=== PATIENT | female | born 1950 | race Caucasian/White ===

== ENCOUNTER → 2016-07-29 | Outpatient (CLI) | payer OTHER ==
--- NOTE | 2016-07-30 08:45 | MM ---
Reason for exam: follow-up at short interval from prior study. Last mammogram was performed 1 year and 4 months ago. History: Patient is postmenopausal. Physical Findings: Nurse did not find any significant physical abnormalities on exam. MG Diagnostic Mammo w CAD CHERIE Bilateral CC and MLO view(s) were taken. Prior study comparison: March 22, 2015, right breast MG 3d work up w/cad RT. March 12, 2015, bilateral MG screening mammo w CAD. January 03, 2014, bilateral MG screening mammo w CAD. February 28, 2008, bilateral digital screening mammogram. There are scattered fibroglandular densities. No significant new findings when compared with previous films. These results were verbally communicated with the patient and result sheet given to the patient on 07/29/16. ASSESSMENT: Benign, BI-RAD 2 RECOMMENDATION: Routine screening mammogram of both breasts in 1 year.
--- NOTE | 2016-07-30 08:45 | USB ---
Reason for exam: follow-up at short interval from prior study. History: Patient is postmenopausal. US Breast RT Right breast ultrasound includes all four quadrants, the retroareolar region and axilla. Finding demonstrates a 0.6 x 0.4 x 0.3cm oval lymph node at 9 o'clock and a 0.4 x 0.3 x 0.2cm oval lymph node at 9 o'clock. These results were verbally communicated with the patient and result sheet given to the patient on 07/29/16. ASSESSMENT: Benign, BI-RAD 2 RECOMMENDATION: Routine screening mammogram of both breasts in 1 year.
== END | disposition home or self-care (01) ==
LOC: RADMAMWWP 13:26
PROVIDERS: ATTEND Family Medicine
DX: R92.8 Other abnormal and inconclusive findings on diagnostic imaging of breast (principal)
CPT/HCPCS: 76641; G0204

== ENCOUNTER → 2017-09-17 | Outpatient (CLI) | payer MEDICARE, OTHER ==
--- NOTE | 2017-09-18 10:31 | MM ---
Reason for exam: screening (asymptomatic). Last mammogram was performed 1 year and 2 months ago. History: Patient is postmenopausal. Physical Findings: A clinical breast exam by your physician is recommended on an annual basis and results should be correlated with mammographic findings. MG Screening Mammo w CAD Bilateral CC and MLO view(s) were taken. Prior study comparison: July 29, 2016, bilateral MG diagnostic mammo w CAD CHERIE. March 22, 2015, right breast MG 3d work up w/cad RT. The breast tissue is heterogeneously dense. This may lower the sensitivity of mammography. There is chronic nodularity in the right breast. No significant changes when compared with prior studies. ASSESSMENT: Benign, BI-RAD 2 RECOMMENDATION: Routine screening mammogram of both breasts in 1 year.
== END | disposition home or self-care (01) ==
LOC: RADMAMWWP 11:14
PROVIDERS: ATTEND Family Medicine
DX: Z12.31 Encounter for screening mammogram for malignant neoplasm of breast (principal)
CPT/HCPCS: 77067

== ENCOUNTER → 2018-10-27 | Outpatient (CLI) | payer MEDICARE, OTHER ==
--- NOTE | 2018-10-27 11:32 | US ---
EXAMINATION TYPE: US abd limited kidneys/bladder DATE OF EXAM: 10/27/2018 COMPARISON: NONE CLINICAL HISTORY: M54.89 Other dorsalgia. EXAM MEASUREMENTS: Liver Length: 13.2 cm Gallbladder Wall: 0.2 cm CBD: 0.3 cm Right Kidney: 10.8 x 3.6 x 4.7 cm Left Kidney: 10.4 x 4.4 x 4.7 cm Pancreas: wnl Liver: 3 hyperechoic masses seen in the liver left lobe mass measures 0.9 x 1.0 x 1.2cm, right lobe 1.)1.5 x 1.0 x 1.4, 2.) 1.6 x 1.1 x 1.6cm Gallbladder: wnl CBD: wnl Right Kidney: wnl Left Kidney: lobular contour laterally Bladder: wnl Bilateral Jets Seen No Normal Post Void Residual (normal less than 50ml) IMPRESSION: 1. Slightly hyperechoic masses within the liver could be hemangioma. Consider dynamic contrast CT of the abdomen for additional evaluation.
== END | disposition home or self-care (01) ==
LOC: RADUSWWP 08:43
PROVIDERS: ATTEND Family Medicine
DX: R16.0 Hepatomegaly, not elsewhere classified (principal); M54.9 Dorsalgia, unspecified
CPT/HCPCS: 76705; 76770

== ENCOUNTER → 2018-11-01 | Outpatient (CLI) | payer MEDICARE, OTHER ==
[2018-11-01 18:51] LABS: African American GFR (CKD) 49.5 (60.0-200.0)
== END | disposition home or self-care (01) ==
LOC: LABWHC1 10:54
PROVIDERS: ATTEND Nurse Practitioner
DX: K76.89 Other specified diseases of liver (principal)
CPT/HCPCS: 36415; 82565; 84520

== ENCOUNTER → 2018-11-06 | Outpatient (CLI) | payer MEDICARE, OTHER ==
--- NOTE | 2018-11-07 08:09 | CT ---
EXAMINATION TYPE: CT abdomen w con DATE OF EXAM: 11/06/2018 HISTORY: Lt flank pain, abn US CT DLP: 794.5mGycm Automated Exposure Control for Dose Reduction was Utilized. CONTRAST: CT scan of the abdomen is performed with IV Contrast, patient injected with 100 mL of Isovue 300. COMPARISON: None. FINDINGS: LUNG BASES: No significant abnormality is appreciated. LIVER/GB: No focal hepatic mass is seen however there is diffuse attenuation of the hepatic parenchym a, relating to hepatic steatosis that does limit evaluation for hepatic masses. No intrapelvic biliar y ductal dilatation or cholelithiasis. PANCREAS: No significant abnormality is seen. SPLEEN: No significant abnormality is seen. ADRENALS: No significant abnormality is seen. KIDNEYS: Too small to accurately characterize bilateral renal lesions are seen with some internal com plexity of the cortically based right midpole renal lesion on series 3 image 32. BOWEL: Descending duodenal diverticulum is noted. LYMPH NODES: No greater than 1cm abdominal nodes are appreciated. OSSEOUS STRUCTURES: Mild multilevel degenerative disc disease of the spine. OTHER: There is an elongated ovoid multiloculated left lower quadrant subcutaneous cystic lesion radha uring approximately 6.3 cm in transverse dimension and 2.2 cm in anterior posterior dimension with ne w internal complexity as there is a calcification and high density at its cranial aspect on image 60 of series 3. Probable partially visualized intramuscular lipoma of the right gluteal musculature. Moderate atherom atous change of the abdominal aorta and its branches. IMPRESSION: 1. There is no clear correlate for the hyperechoic masses seen on the prior ultrasound of 10/27/2018. However there is diffuse hypoattenuation of the hepatic parenchyma relating to hepatic steatosis (ove rall mild in degree). This finding does limit evaluation for hepatic masses. When compared with the p rockfordr ultrasound the sonographic findings likely represent focal fatty sparing or hemangiomas in a pat ient with no known underlying hepatocellular disease and no CT evidence of hepatocellular disease. Ho wever, these could be more accurately assessed with MRI liver mass protocol. 2. Bilateral renal lesions that are subcentimeter and too small to accurately characterize although t here is some complexity of the right renal lesion and six-month follow-up CT would be recommended. 3. Partially visualized lobulated fluid attenuating lesion in the anterior abdomen with an associated calcification. This has increased in size from the prior 2010. Given its presence from 2010 this may be related to a benign etiology and correlation with surgical intervention at this site is recommend ed. Given its new internal complexity if there is any further clinical concern ultrasound guided baldev andersen could be considered.
== END | disposition home or self-care (01) ==
LOC: RADCTMAIN 09:21
PROVIDERS: ATTEND Family Medicine
DX: K76.0 Fatty (change of) liver, not elsewhere classified (principal); R16.0 Hepatomegaly, not elsewhere classified; N28.9 Disorder of kidney and ureter, unspecified
CPT/HCPCS: 74160; Q9967

== ENCOUNTER → 2018-11-30 | Outpatient (CLI) | payer MEDICARE, OTHER ==
--- NOTE | 2018-12-01 08:37 | MR ---
EXAMINATION TYPE: MR liver wo/w con DATE OF EXAM: 11/30/2018 COMPARISON: CT abdomen November 06, 2018. Limited abdominal ultrasound October 27, 2018 HISTORY: Liver mass CONTRAST: Standard multiplanar, multisequence MRI departmental protocol utilizing 7.5 mL intravenous Gadavist g adolinium contrast. Imaging is performed of the abdomen focusing in the liver. FINDINGS: Liver: Liver redemonstrates prominent right hepatic lobe. Mild diffuse signal dropout consistent wit h mild diffuse fatty infiltration is present. No worrisome solid or cystic intrahepatic masses are id entified on dynamic MRI images. No surrounding ascites. Patent portal vein. Patent hepatic veins drai felecia into IVC. Areas of concern on ultrasound favor more prominent focal fatty infiltration as more c entral near vicky hepatis and gallbladder fossa. Other: Lung bases are grossly clear. Gallbladder, spleen, and both adrenal glands are normal in size. There is a 3 mm thin-walled cyst or cystic lesion in the pancreas or level of uncinate processes axi al image 27 presumed benign given size. Subcentimeter rounded T2 hyperintense lesions scattered throu ghout both kidneys are too small to further characterize for presumed benign. No hydronephrosis. No s uspicious bowel dilatation. No abdominal ascites. Visualized osseous structures show hemangioma invol ving the left T8 vertebra image 29 IMPRESSION: No worrisome intrahepatic mass identified on MRI.
== END | disposition home or self-care (01) ==
LOC: RADMRIMAIN 08:45
PROVIDERS: ATTEND Internal Medicine
DX: K76.89 Other specified diseases of liver (principal)
CPT/HCPCS: 74183; A9585

== ENCOUNTER 2018-12-09 08:17 | Day surgery (SDC) | payer MEDICARE, OTHER ==
[~2018-12-09 08:17] MED LIST: DEXAMETHASONE SOD PHOSPHATE 10 MG/ML 1 ML VIAL IV ONE; HEPARIN SODIUM,PORCINE 5,000 UNIT/ML 1 ML VIAL SQ ONE; HYDROmorphone 0.5 MG/0.5 ML SYRINGE IVP PRN; LIDOCAINE 1% 20 ML VIAL (10MG/ML) FOR IV START INTRADERMA PRN; Pre Op ABX Message 1 EACH MISC MISCELLANE ONE; SCOPOLAMINE 1.5MG/72HR PATCH TRANSDERM ONE
[2018-12-09 08:53] LABS: Glucose,Whole Blood 142 mg/dL (75-99)
[2018-12-09] MEDS ORDERED: LACTATED RINGERS 1,000 ML IV ONE ×2 (08:55→10:53)
[2018-12-09] MEDS: ONDANSETRON 4 MG/2 ML VIAL IVP ONE ×2 (08:55→12:59)
--- NOTE | 2018-12-09 10:14 | P.GSHP ---
History of Present Illness H&P Date: 12/09/18 Chief Complaint: Left lower quadrant mass This is a 68-year-old female who presents today for excision of a left lower quadrant mass. Patient developed a 10 cm mass in the subcutaneous tissue of the left lower quadrant. The mass is firm and tender. Past Medical History Past Medical History: Diabetes Mellitus, GERD/Reflux, Hyperlipidemia, Hypertension, Thyroid Disorder Additional Past Medical History / Comment(s): DIVERTICULITIS, GOUT-RIGHT GREAT TOE SORE., PT STATES DR "KILLED MY THYROID"., GLAUCOMA, VERTIGO., ABDOMINAL MASS. History of Any Multi-Drug Resistant Organisms: MRSA Date of last positivie culture/infection: 2005 MDRO Source:: LEG Additional Past Surgical History / Comment(s): RT OVARY REMOVED, STATES PYLORIC VALVE SURGERY AN , TUMOR ON FINGER. Past Anesthesia/Blood Transfusion Reactions: No Reported Reaction, Motion Sickness Past Psychological History: No Psychological Hx Reported Smoking Status: Former smoker Past Alcohol Use History: Rare Additional Past Alcohol Use History / Comment(s): QUIT SMOKING 2009 STARTED SMOKING AT AGE 27, SMOKED LESS THAN PPD Past Drug Use History: None Reported - Past Family History Daughter(s) Additional Family Medical History / Comment(s): LUPUS Medications and Allergies Home Medications Medication Instructions Recorded Confirmed Type Gemfibrozil [Lopid] 600 mg PO BID 11/17/13 12/09/18 History Simvastatin [Zocor] 20 mg PO HS 11/17/13 12/09/18 History metFORMIN HCL 1,000 mg PO BID 11/17/13 12/09/18 History Calcium Carb/Magnesium Hydrox 1 each PO DAILY PRN 12/07/18 12/09/18 History [Rolaids Chewable Tablet] Cetirizine HCl 10 mg PO DAILY 12/07/18 12/09/18 History Arguello Tablets 1 tab PO DIRECTED PRN 12/07/18 12/09/18 History Cholecalciferol [Vitamin D3 (25 1,000 unit PO DAILY 12/07/18 12/07/18 History Mcg = 1000 Iu)] Diltiazem HCl [Diltiazem ER] 360 mg PO DAILY 12/07/18 12/07/18 History Fiber Supplement 1 dose PO DAILY 12/07/18 12/09/18 History Hydrochlorothiazide [Hydrodiuril] 25 mg PO DAILY 12/07/18 12/09/18 History Indomethacin [Indocin] 50 mg PO DAILY PRN 12/07/18 12/07/18 History Latanoprost/Pf [Latanoprost 0.005% 1 drop BOTH EYES HS 12/07/18 12/09/18 History Eye Drop] Levothyroxine Sodium [Synthroid] 88 mcg PO DAILY 12/07/18 12/07/18 History Lisinopril [Zestril] 20 mg PO BID 12/07/18 12/07/18 History Multivit-Min/FA/Lycopen/Lutein 1 each PO DAILY 12/07/18 12/07/18 History [Centrum Silver Tablet] glipiZIDE XL [Glucotrol Xl] 10 mg PO DAILY 12/07/18 12/09/18 History Allergies Allergy/AdvReac Type Severity Reaction Status Date / Time codeine Allergy Unknown Nausea & Verified 12/07/18 09:54 Vomiting tramadol Allergy Unknown Nausea & Verified 12/07/18 09:54 Vomiting Surgical - Exam Vital Signs Temp Pulse Resp BP Pulse Ox 97.8 F 73 18 151/67 96 12/09/18 08:35 12/09/18 08:35 12/09/18 08:35 12/09/18 08:35 12/09/18 08:35 - General well developed, well nourished, no distress - Eyes PERRL - ENT normal pinna - Neck no masses - Respiratory normal expansion - Cardiovascular Rhythm: regular - Abdomen Abdomen: soft, non tender - Integumentary 10 cm mass in the left lower quadrant subcutaneous tissue. Results - Labs Abnormal Lab Results - Last 24 Hours (Table) 12/09/18 Range/Units 08:51 POC Glucose (mg/dL) 142 H (75-99) mg/dL Assessment and Plan Assessment: Left lower quadrant subcutaneous mass. Patient will go undergo excision.
[2018-12-09] MEDS ORDERED: GLYCOPYRROLATE 0.2 MG/ML 2 ML VIAL ONE (10:29)
[2018-12-09] MEDS ORDERED: fentaNYL (PF) 50 MCG/ML 2 ML AMP ONE (10:29)
[2018-12-09] MEDS ORDERED: SUCCINYLCHOLINE CHLORIDE 100 MG/5 ML SYR IV ONE (10:29)
[2018-12-09] MEDS ORDERED: NEOSTIGMINE 1 MG/ML 10 ML VIAL ONE (10:29)
[2018-12-09] MEDS ORDERED: ROCURONIUM BROMIDE 10 MG/ML 10 ML VIAL IV ONE (10:29)
[2018-12-09] MEDS ORDERED: PROPOFOL 10 MG/ML 20 ML VIAL IV ONE (10:29)
[2018-12-09] MEDS ORDERED: MIDAZOLAM 2 MG/2 ML VIAL ONE (10:29)
[2018-12-09] MEDS ORDERED: LIDOCAINE 1% INJ 10MG/ML (20 ML MDV) ONE (10:29)
[2018-12-09] MEDS ORDERED: SODIUM CHLORIDE 0.9% 50 ML with ceFAZolin 2,000 MG IV ONE ×2 (10:37)
[2018-12-09] MEDS ORDERED: BUPIVACAINE (PF) 0.25% 30 ML VIAL SQ ONE (10:41)
--- NOTE | 2018-12-09 11:02 | P.OP ---
Date of Procedure: 12/09/18 Preoperative Diagnosis: Left lower quadrant mass Postoperative Diagnosis: Incarcerated ventral hernia Procedure(s) Performed: Open repair of incarcerated ventral hernia Anesthesia: PAO Surgeon: Carlo Valdez Pathology: other (Hernia sac/omentum) Condition: stable Disposition: PACU Description of Procedure: The patient's placed on the operating table in the supine position. She received general anesthesia. Her abdomen was prepped and draped usual sterile fashion. The patient a mass in the left lower quadrant. The skin over the mass was then incised with 15 blade. Using the cautery the subcutaneous tissues were divided. The mass was exposed. The mass appeared to be a incarcerated ventral hernia. Hernia sac was transected the incarcerated omentum was transected and sent to pathology. The fascial defect was then closed with. 0 Ethibond suture. Skin was closed with bernard. Patient top she will was sent to recovery room in stable condition.
[2018-12-09] MEDS ORDERED: INSULIN ASPART (NovoLOG) 100 UNIT/ML VIAL SQ ONE ×2 (13:11→14:45)
[2018-12-09 13:20] LABS: Glucose,Whole Blood 286 mg/dL (75-99)
[2018-12-09] MEDS ORDERED: PROMETHAZINE INJ 25 MG/ML 1 ML VIAL IVPB ONE (14:06)
[2018-12-09 14:11] LABS: Glucose,Whole Blood 265 mg/dL (75-99)
[2018-12-09 15:10] LABS: Glucose,Whole Blood 237 mg/dL (75-99)
[2018-12-09] MEDS ORDERED: DILTIAZEM DRIP BOLUS FROM BAG 1 MG SOLN IV ONE (18:00)
[2018-12-09 18:35] LABS: Glucose,Whole Blood 149 mg/dL (75-99)
[2018-12-09] MEDS: LACTATED RINGERS 1,000 ML IV SCH (19:03)
[2018-12-09] MEDS: SODIUM CHLORIDE 0.9% 1,000 ML IV SCH (19:08)
[2018-12-09] MEDS: DILTIAZEM 125 MG in SODIUM CHLORIDE 0.9% 100 ML IV SCH (19:09)
[2018-12-09 20:01] VITALS: BMI 31.0
--- NOTE | 2018-12-09 20:05 | CONS ---
CONSULTATION DATE OF SERVICE: 12/09/2018 Mrs. Lore Lugo is a 68-year-old lady who sees Dr. Garduno in the outpatient setting and Dr. Clancy from a cardiology standpoint. She has history of type 2 diabetes, hypertension and hypercholesterolemia. She has no history of any ID or CVA. She was brought in for elective repair of incarcerated ventral hernia. This procedure was performed by Dr. Valdez. Following the procedure while she was in recovery she went into atrial fibrillation with a rate of about 120 to 130, and I was asked to see her around 5 p.m. today. Upon arrival, patient is comfortable resting. She is aware of the palpitations but has no chest pain. She has never had any atrial fibrillation before; this seems to be the first episode. She does not recall any similar palpitations in the recent or remote past. She saw Dr. Clancy within the last few months and also had a stress test about 14 to 15 months ago which was normal per patient. PAST MEDICAL HISTORY: 1. Type 2 diabetes, on oral agents. 2. Hyperlipidemia. 3. Hypertension. 4. Hypothyroidism. 5. No evidence of any prior myocardial infarction or CVA. MEDICATIONS: Medications at home include: 1. Metformin 1000 mg b.i.d. 2. Glucotrol XL 10 mg daily. 3. Simvastatin 20 mg daily. 4. Hydrochlorothiazide 25 mg daily. 5. Lopid 600 mg b.i.d. 6. Diltiazem XR 360 mg daily. 7. Synthroid 88 mcg daily. 8. Indocin. 9. Zestril. 10.Hydrocodone. ALLERGIES: CODEINE and TRAMADOL. PHYSICAL EXAMINATION: Blood pressure is 128/70. Pulse rate is about 124 per minute, irregular. HEENT unremarkable. Fundus was not examined by me. Neck is supple. There is no JVD. I do not hear a carotid bruit. Heart exam reveals S1, S2 with rhythm. No significant murmurs. Tachycardia noted. Lungs reveal decent air entry. Abdomen exam deferred. Central nervous system grossly within normal limits. Lower extremities reveal diminished pulses. EKG reveals atrial fibrillation, moderate ventricular rate, nonspecific ST-T changes. IMPRESSION: 1. New-onset atrial fibrillation. 2. Hypertension. 3. Hyperlipidemia. 4. Type 2 diabetes mellitus. 5. Hypothyroidism. 6. Status post repair of ventral hernia by Dr. Valdez. RECOMMENDATIONS: I am recommending hospitalization, intravenous Cardizem, 0.9 saline 75 mL/hour, resumption of oral medications that she takes at home. Patient's anticoagulation can wait until tomorrow since she had surgery today. I explained to the patient that she will require long-term anticoagulation, given the fact she has diabetes, hypertension and is 68 years of age. Patient understands and will follow through. I am recommending that the patient be hospitalized by the hospitalist, and I gave the nurse the above-outlined orders. Hopefully she will convert to sinus rhythm by tomorrow. Thank you very much for the consult. ESTELLA / JUANAN: [id number] /
[2018-12-09 20:53] LABS: Glucose,Whole Blood 251 mg/dL (75-99)
[2018-12-09] MEDS ORDERED: LATANOPROST 0.005% OPHTH DROPS 2.5 ML BTL BOTH EYES SCH (21:00)
[2018-12-09] MEDS ORDERED: ATORVASTATIN 10 MG TAB PO SCH (21:00)
[2018-12-09] MEDS: LISINOPRIL 20 MG TAB PO SCH (21:07)
[2018-12-09] MEDS: INSULIN ASPART (NovoLOG) 100 UNIT/ML VIAL SQ SCH (21:08)
[2018-12-10] MEDS ORDERED: ACETAMINOPHEN TAB 325 MG TAB PO PRN (03:02)
[2018-12-10 03:15] VITALS: RESP 18
[2018-12-10] MEDS: LACTATED RINGERS 1,000 ML IV SCH (05:01)
[2018-12-10] MEDS: SODIUM CHLORIDE 0.9% 1,000 ML IV SCH (06:13)
[2018-12-10 06:18] LABS: Glucose,Whole Blood 175 mg/dL (75-99)
[2018-12-10] MEDS ORDERED: LEVOTHYROXINE 88 MCG TAB PO SCH (06:30)
[2018-12-10] MEDS: INSULIN ASPART (NovoLOG) 100 UNIT/ML VIAL SQ SCH ×2 (06:35→12:02)
[2018-12-10 06:52] LABS: Basophils % (A) 0 %; Eosinophils % (A) 0 %; HCT 35.4 % (34.0-46.0); HGB 11.5 gm/dL (11.4-16.0); Lymphocytes # (A) 1.3 k/uL (1.0-4.8); Lymphocytes % (A) 9 %; MCH 28.2 pg (25.0-35.0); MCHC 32.4 g/dL (31.0-37.0); MCV 87.2 fL (80.0-100.0); Mean Platelet Volume 6.8; Monocytes # (A) 0.5 k/uL (0-1.0); Monocytes % (A) 4 %; Neutrophils # (A) 12.6 k/uL (1.3-7.7); Neutrophils % (A) 86 %; Platelet Count 335 k/uL (150-450); RBC 4.07 m/uL (3.80-5.40); RDW 13.7 % (11.5-15.5); WBC 14.6 k/uL (3.8-10.6)
[2018-12-10 07:12] LABS: Albumin 3.8 g/dL (3.5-5.0); Calcium 9.7 mg/dL (8.4-10.2); Potassium 4.4 mmol/L (3.5-5.1); Total Bilirubin 0.4 mg/dL (0.2-1.3); Total Protein 6.4 g/dL (6.3-8.2)
[2018-12-10] MEDS: LISINOPRIL 20 MG TAB PO SCH (07:57)
--- NOTE | 2018-12-10 08:38 | P.PN ---
Progress Note - Text Progress Note Date: 12/10/18 The patient is resting comfortably in her bed. Appears that her atrial flutter rate has been controlled. She has minimal abdominal pain. On exam her vital signs are stable. Her abdomen soft. Patiently discharged home today she'll follow up with cardiology and myself as an outpatient.
[2018-12-10] MEDS ORDERED: LORATADINE 10 MG TAB PO SCH (09:00)
[2018-12-10] MEDS ORDERED: FENOFIBRATE 160 MG TAB PO SCH (09:00)
[2018-12-10] MEDS ORDERED: HYDROCHLOROTHIAZIDE 25 MG TAB PO SCH (09:00)
[2018-12-10] MEDS ORDERED: INDOMETHACIN 25 MG CAP PO PRN (10:14)
[2018-12-10] MEDS ORDERED: NON FORMULARY DRUG (Metformin Hcl [Metformin Hcl] 1,000 MG) PO SCH (10:15)
[2018-12-10] MEDS ORDERED: glipiZIDE 5 MG TAB PO SCH (10:15)
[2018-12-10] MEDS ORDERED: DILTIAZEM CD 180 MG CAP.ER.24H PO SCH (10:15)
[2018-12-10] MEDS: DILTIAZEM 125 MG in SODIUM CHLORIDE 0.9% 100 ML IV SCH (10:51)
[2018-12-10 11:38] LABS: Glucose,Whole Blood 220 mg/dL (75-99)
[2018-12-10 11:53] VITALS: BP 129/71; PULSE 68; TEMP 97.9
--- NOTE | 2018-12-10 11:57 | P.CONS ---
History of Present Illness - Reason for Consult Consult date: 12/10/18 Medical management Requesting physician: Carlo Valdez - Chief Complaint Status post ventral hernia repair - History of Present Illness This is a 68-year-old female, patient of Dr. Garduno. She has a known past medical history of diabetes, hyperlipidemia, hypertension and hypothyroidism. Patient came into the hospital for an incarcerated ventral hernia and underwent open repair of the incarcerated ventral hernia with Dr. Valdez. She tolerated surgery well. However, following the procedure she was in recovery and went into atrial fibrillation with a heart rate around 120 to 130s. Cardiology was consulted and patient was started on a Cardizem drip. Patient has converted to normal sinus rhythm. And cardiology is recommending Eliquis to be started on Thursday due to her recent surgery. Thyroid level is normal. Patient denies any chest pain, heart palpitations, shortness of breath or nausea or vomiting. She has never had atrial fibrillation before. She did have a small bowel movement today. Denies any burning with urination. She is anticipating being discharged this afternoon. We have been consulted for medical management. Review of Systems Please refer to HPI otherwise unremarkable Past Medical History Past Medical History: Diabetes Mellitus, GERD/Reflux, Hyperlipidemia, Hy pertension, Thyroid Disorder Additional Past Medical History / Comment(s): DIVERTICULITIS, GOUT-RIGHT GREAT TOE SORE., PT STATES DR "KILLED MY THYROID"., GLAUCOMA, VERTIGO., ABDOMINAL MASS. History of Any Multi-Drug Resistant Organisms: MRSA Year Discovered:: 2005 MDRO Source:: LEG Additional Past Surgical History / Comment(s): RT OVARY REMOVED, STATES PYLORIC VALVE SURGERY AN INFANT, TUMOR ON FINGER. Past Anesthesia/Blood Transfusion Reactions: Motion Sickness Past Psychological History: No Psychological Hx Reported Smoking Status: Former smoker Past Alcohol Use History: Rare Additional Past Alcohol Use History / Comment(s): QUIT SMOKING 2009 STARTED SMOKING AT AGE 27, SMOKED LESS THAN PPD Past Drug Use History: None Reported - Past Family History Daughter(s) Additional Family Medical History / Comment(s): LUPUS Medications and Allergies Home Medications Medication Instructions Recorded Confirmed Type Gemfibrozil [Lopid] 600 mg PO BID 11/17/13 12/09/18 History Simvastatin [Zocor] 20 mg PO HS 11/17/13 12/09/18 History metFORMIN HCL 1,000 mg PO BID 11/17/13 12/09/18 History Calcium Carb/Magnesium Hydrox 1 each PO DAILY PRN 12/07/18 12/09/18 History [Rolaids Chewable Tablet] Cetirizine HCl 10 mg PO DAILY 12/07/18 12/09/18 History Arguello Tablets 1 tab PO DIRECTED PRN 12/07/18 12/09/18 History Cholecalciferol [Vitamin D3 (25 1,000 unit PO DAILY 12/07/18 12/07/18 History Mcg = 1000 Iu)] Diltiazem HCl [Diltiazem ER] 360 mg PO DAILY 12/07/18 12/07/18 History Fiber Supplement 1 dose PO DAILY 12/07/18 12/09/18 History Hydrochlorothiazide [Hydrodiuril] 25 mg PO DAILY 12/07/18 12/09/18 History Indomethacin [Indocin] 50 mg PO DAILY PRN 12/07/18 12/07/18 History Latanoprost/Pf [Latanoprost 0.005% 1 drop BOTH EYES HS 12/07/18 12/09/18 History Eye Drop] Levothyroxine Sodium [Synthroid] 88 mcg PO DAILY 12/07/18 12/07/18 History Lisinopril [Zestril] 20 mg PO BID 12/07/18 12/07/18 History Multivit-Min/FA/Lycopen/Lutein 1 each PO DAILY 12/07/18 12/07/18 History [Centrum Silver Tablet] glipiZIDE XL [Glucotrol Xl] 10 mg PO DAILY 12/07/18 12/09/18 History Docusate [Colace] 100 mg PO BID #20 capsule 12/09/18 Rx HYDROcodone/APAP 5-325MG [Isle 1 tab PO Q6HR PRN #10 tab 12/09/18 Rx 5-325] Apixaban [Eliquis] 5 mg PO BID #60 tab 12/10/18 Rx Allergies Allergy/AdvReac Type Severity Reaction Status Date / Time codeine Allergy Unknown Nausea & Verified 12/07/18 09:54 Vomiting tramadol Allergy Unknown Nausea & Verified 12/07/18 09:54 Vomiting Physical Exam Vitals: Vital Signs Temp Pulse Pulse Pulse Resp BP BP 12/10/18 08:06 78 12/10/18 08:00 97.8 F 78 18 119/71 12/10/18 03:00 98.2 F 79 18 121/59 12/09/18 23:00 98.2 F 94 16 141/71 12/09/18 19:00 98.4 F 126 H 16 124/74 12/09/18 18:45 124 H 16 140/72 12/09/18 17:53 100 16 133/90 12/09/18 17:39 68 16 117/88 12/09/18 16:27 121 H 18 129/74 12/09/18 16:00 121 H 18 129/74 12/09/18 15:25 120 H 18 133/88 12/09/18 15:11 114 H 18 119/80 12/09/18 14:40 124 H 18 120/82 12/09/18 14:25 122 H 18 116/78 12/09/18 14:10 123 H 18 123/83 12/09/18 13:51 119 H 16 138/83 12/09/18 13:35 121 H 16 117/76 12/09/18 13:19 120 H 15 132/78 12/09/18 13:00 120 H 16 122/58 12/09/18 12:45 122 H 16 128/59 12/09/18 12:30 119 H 16 134/69 12/09/18 12:15 120 H 18 119/54 12/09/18 12:00 63 16 124/60 Pulse Ox 12/10/18 08:06 12/10/18 08:00 95 12/10/18 03:00 96 12/09/18 23:00 96 12/09/18 19:00 96 12/09/18 18:45 96 12/09/18 17:53 98 12/09/18 17:39 98 12/09/18 16:27 100 12/09/18 16:00 100 12/09/18 15:25 96 12/09/18 15:11 96 12/09/18 14:40 99 12/09/18 14:25 100 12/09/18 14:10 95 12/09/18 13:51 95 12/09/18 13:35 94 L 12/09/18 13:19 94 L 12/09/18 13:00 96 12/09/18 12:45 94 L 12/09/18 12:30 93 L 12/09/18 12:15 98 12/09/18 12:00 93 L Intake and Output 12/09/18 12/10/18 12/10/18 22:59 06:59 14:59 Intake Total 200 180 Output Total 2 Balance 200 178 Intake: IV 200 Oral 180 Output: Urine 2 Other: Voiding Method Toilet Toilet Weight 75.7 kg Head normocephalic Neck supple Lungs clear to auscultation bilaterally no wheezing or crackles Heart regular rate and rhythm S1-S2, no rub or gallop Abdomen is soft nontender nondistended positive bowel sounds no hepatosplenomegaly Extremities no edema Neuro alert and orientated to 3 Results CBC & Chem 7: 12/10/18 06:07 12/10/18 06:07 Labs: Abnormal Lab Results - Last 24 Hours (Table) 12/09/18 12/09/18 12/09/18 Range/Units 12:55 14:08 15:07 WBC (3.8-10.6) k/uL Neutrophils # (1.3-7.7) k/uL BUN (7-17) mg/dL Creatinine (0.52-1.04) mg/dL Glucose (74-99) mg/dL POC Glucose (mg/dL) 286 H 265 H 237 H (75-99) mg/dL 12/09/18 12/09/18 12/10/18 Range/Units 18:32 20:52 06:07 WBC 14.6 H (3.8-10.6) k/uL Neutrophils # 12.6 H (1.3-7.7) k/uL BUN (7-17) mg/dL Creatinine (0.52-1.04) mg/dL Glucose (74-99) mg/dL POC Glucose (mg/dL) 149 H 251 H (75-99) mg/dL 12/10/18 12/10/18 12/10/18 Range/Units 06:07 06:17 11:37 WBC (3.8-10.6) k/uL Neutrophils # (1.3-7.7) k/uL BUN 26 H (7-17) mg/dL Creatinine 1.06 H (0.52-1.04) mg/dL Glucose 165 H (74-99) mg/dL POC Glucose (mg/dL) 175 H 220 H (75-99) mg/dL Assessment and Plan Assessment: 1. Incarcerated ventral hernia status post open repair with Dr. King 2. New onset paroxysmal atrial fibrillation that occurred postoperatively. Patient currently in normal sinus rhythm after being placed on IV Cardizem drip. Seen by cardiology. Cardizem drip has been discontinued. Patient restarted on her home medication of Cardizem. Thyroid level checked and is normal. 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 Essential hypertension: Blood pressure stable Q current medications. 4. Leukocytosis likely related to the dexamethasone given in the OR. No evidence of infection 5. Hyperglycemia secondary to the dexamethasone continue with sliding scale coverage. Resume patient's glipizide. Hold metformin while she is in the hospital 6. Mild dehydration with BUN 26 and creatinine 1.06. Likely related to patient being nothing by mouth. Encourage fluid intake. 7. Hypothyroidism continue with her Synthroid Thank you for this consultation. We'll follow along the patient's hospitalization. Most likely she'll be discharged this afternoon and recommend that patient has CBC and BMP checked in 1 week when she follows up with her PCP. Time with Patient: Greater than 30 (Greater than 50% of the total time spent in counseling and coordination of care.I performed an examination of the patient and discussed their management with the physician Employment Specialist. I have reviewed the Physician Employment Specialist's notes and agree with the documented findings and plan of care)
--- NOTE | 2018-12-10 22:35 | PN ---
PROGRESS NOTE Lore is in sinus rhythm, she converted last night. She had paroxysmal atrial fibrillation after her surgery. Her vitals are stable, doing well. S1-S2 heard normally. Lungs are clear. Abdomen and lower extremity exam unchanged. She underwent a ventral hernia repair, had postoperatively developed atrial fib, now back in sinus rhythm. I am recommending that we start anticoagulation Eliquis after 48 hours as suggested by Dr. Valdez and she will see Dr. lCancy in one week. Same home medications. MMODL / IJN: [id number] /
== END 2018-12-10 13:36 | disposition home or self-care (01) ==
LOC: OR 08:17 → 3SCARD 11:17 → OR 12-10 13:36
PROVIDERS: ATTEND Surgery
DX: K43.6 Other and unspecified ventral hernia with obstruction, without gangrene (principal); I48.0 Paroxysmal atrial fibrillation; I10 Essential (primary) hypertension; E78.5 Hyperlipidemia, unspecified; K21.9 Gastro-esophageal reflux disease without esophagitis; E03.9 Hypothyroidism, unspecified; E78.00 Pure hypercholesterolemia, unspecified; E11.39 Type 2 diabetes mellitus with other diabetic ophthalmic complication; H42 Glaucoma in diseases classified elsewhere; E66.9 Obesity, unspecified; E11.65 Type 2 diabetes mellitus with hyperglycemia; D72.829 Elevated white blood cell count, unspecified; M10.9 Gout, unspecified; E86.0 Dehydration; Z87.891 Personal history of nicotine dependence; Z88.5 Allergy status to narcotic agent; Z88.6 Allergy status to analgesic agent; Z68.31 Body mass index [BMI] 31.0-31.9, adult; Z79.84 Long term (current) use of oral hypoglycemic drugs; Z79.899 Other long term (current) drug therapy; Z87.19 Personal history of other diseases of the digestive system; Z98.890 Other specified postprocedural states; Z79.890 Hormone replacement therapy; Z86.14 Personal history of Methicillin resistant Staphylococcus aureus infection; Z90.721 Acquired absence of ovaries, unilateral; Z83.2 Family history of diseases of the blood and blood-forming organs and certain disorders involving the immune mechanism; Z79.01 Long term (current) use of anticoagulants
CPT/HCPCS: 93005; 88305; 80053; 84443; 85025; 83036; 49561; J2250; J1644; J1100; J2550; J2710; J2405; J0690; J2001; J3010; J0330; J2704

== ENCOUNTER → 2019-01-04 | Outpatient (CLI) | payer MEDICARE, OTHER ==
--- NOTE | 2019-01-07 10:45 | MM ---
Reason for exam: screening (asymptomatic). Last mammogram was performed 1 year and 4 months ago. History: Patient is postmenopausal. Physical Findings: A clinical breast exam by your physician is recommended on an annual basis and results should be correlated with mammographic findings. MG Screening Mammo w CAD Bilateral CC and MLO view(s) were taken. Prior study comparison: September 17, 2017, bilateral MG screening mammo w CAD. July 29, 2016, bilateral MG diagnostic mammo w CAD [facility]. There are scattered fibroglandular densities. There is chronic nodularity bilaterally. No significant changes when compared with prior studies. ASSESSMENT: Benign, BI-RAD 2 RECOMMENDATION: Routine screening mammogram of both breasts in 1 year.
== END | disposition home or self-care (01) ==
LOC: RADMAMWWP 11:29
PROVIDERS: ATTEND Family Medicine
DX: Z12.31 Encounter for screening mammogram for malignant neoplasm of breast (principal)
CPT/HCPCS: 77067

== ENCOUNTER → 2019-11-21 | Outpatient (CLI) | payer MEDICARE, OTHER ==
--- NOTE | 2019-11-21 08:21 | US ---
EXAMINATION TYPE: US pelvis complete transvag DATE OF EXAM: 11/21/2019 COMPARISON: CT 2010 CLINICAL HISTORY: N95.0 post saran bleeding,R10.819 abd tenderness. pelvic tenderness, post menopausal bleeding, right oopherectomy 1995 TECHNIQUE: Transvaginal (TV) and Transabdominal (TA) . Transabdominal sonographic images of the pel vis were acquired. Transvaginal sonographic images were medically necessary to better assess the fol lowing anatomy: uterus Date of LMP: unknown EXAM MEASUREMENTS: Uterus: 10.6 x 5.1 x 7.9 cm Endometrial Stripe: Not well visualized Right Ovary: Surgically absent Left Ovary: unable to visualize 1. Uterus: Anteverted Nabothian cysts, heterogeneous with at least 2 probable fibroids, largest = 3.5 x 3.5 x 3.6cm 2. Endometrium: difficult to evaluate due to heterogeneous myometrium, 3. Right Ovary: Surgically absent 4. Left Ovary: Obscured by overlying bowel gas 5. Bilateral Adnexa: appears wnl 6. Posterior cul-de-sac: appears wnl Prominent uterus for patient's age that remains heterogeneous and lobulated with fibroids, there is a calcified 3.3 cm posterior subserosal fibroid causing lobulated contour and a 3.5 cm hypoechoic left -sided subserosal fibroid. Tiny nabothian cysts are seen in the cervix on transvaginal investigation. Endometrial stripe not well seen appears thickened up to 12 mm inferior aspect of uterus. Follow-up a dvised. No free fluid in pelvic cul-de-sac. Right ovary is surgically absent. Left ovary not seen. No suspicious adnexal masses noted. IMPRESSION: Enlarged lobulated fibroid uterus redemonstrated. Suboptimal evaluation of the endometria l stripe. Cannot exclude abnormal thickening. Follow-up advised. Consider sampling versus hysterectom y.
--- NOTE | 2019-11-21 08:29 | US ---
EXAMINATION TYPE: US kidneys/renal and bladder DATE OF EXAM: 11/21/2019 COMPARISON: CT abdomen November 06, 2018. MRI liver November 30, 2018. CLINICAL HISTORY: N95.0 post saran bleeding,R10.819 abd tenderness. disorder of kidney EXAM MEASUREMENTS: Right Kidney: 10.3 x 3.6 x 3.6 cm Left Kidney: 10.0 x 4.7 x 3.9 cm Right Kidney: cystic area lateral = 1.2 x 1.0 x 1.1cm Left Kidney: no evidence of hydronephrosis Bladder: appears wnl Bilateral Jets seen: yes There is 1.2 cm simple appearing thin-walled cyst laterally right kidney midpole level likely corresp onding to MRI lesion coronal series 601 image 24. No hydronephrosis and right kidney. Adjacent liver shows heterogeneous hyperechoic appearance consistent with mild diffuse fatty infiltration. Left kidn ey shows no concerning mass or hydronephrosis. Bladder satisfactorily distended without suspicious ma ss or wall thickening. IMPRESSION: No hydronephrosis is noted bilaterally.
== END | disposition home or self-care (01) ==
LOC: RADUSWWP 07:22
PROVIDERS: ATTEND Family Medicine
DX: D25.2 Subserosal leiomyoma of uterus (principal); N28.9 Disorder of kidney and ureter, unspecified
CPT/HCPCS: 76770; 76830; 76856

== ENCOUNTER → 2020-01-31 | Outpatient (CLI) | payer MEDICARE, OTHER ==
--- NOTE | 2020-02-01 09:25 | MM ---
Reason for exam: screening (asymptomatic). Last mammogram was performed 1 year and 1 month ago. History: Patient is postmenopausal. Physical Findings: A clinical breast exam by your physician is recommended on an annual basis and results should be correlated with mammographic findings. MG 3D Screening Mammo W/Cad Bilateral CC and MLO view(s) were taken. Prior study comparison: January 04, 2019, bilateral MG screening mammo w CAD. September 17, 2017, bilateral MG screening mammo w CAD. There are scattered fibroglandular densities. There is no discrete abnormality. No significant changes when compared with prior studies. ASSESSMENT: Negative, BI-RAD 1 RECOMMENDATION: Routine screening mammogram of both breasts in 1 year.
== END | disposition home or self-care (01) ==
LOC: RADMAMWWP 09:59
PROVIDERS: ATTEND Family Medicine
DX: Z12.31 Encounter for screening mammogram for malignant neoplasm of breast (principal)
CPT/HCPCS: 77063; 77067

== ENCOUNTER → 2020-02-07 | Outpatient (CLI) | payer MEDICARE, OTHER | END | disposition home or self-care (01) | LOC: LABWHC1 16:02 | PROVIDERS: ATTEND Family Medicine | DX: Z20.828 Contact with and (suspected) exposure to other viral communicable diseases (principal) | CPT/HCPCS: U0003; C9803 ==

== ENCOUNTER → 2022-01-07 | Outpatient (CLI) | payer MEDICARE, OTHER ==
--- NOTE | 2022-01-07 14:58 | XR ---
EXAMINATION TYPE: XR chest 2V DATE OF EXAM: 01/07/2022 COMPARISON: 03/08/2011 TECHNIQUE: PA and lateral views submitted. HISTORY: Cough FINDINGS: The lungs are clear and there is no pneumothorax, pleural effusion, or focal pneumonia. Heart size normal. There is a coarsened interstitium with biapical pleural thickening. Hypertrophic and degenera tive changes spine. Hyperinflation suggests COPD. Calcified nodules are seen on the lateral view over lying the heart likely related to granuloma or calcified lymph node. IMPRESSION: 1. Correlate for COPD and chronic interstitial pulmonary fibrosis. Mild superimposed bronchitis or in terstitial pneumonitis in the differential diagnosis.
== END | disposition home or self-care (01) ==
LOC: RADXRMAIN 14:34
PROVIDERS: ATTEND Family Medicine
DX: Z00.00 Encounter for general adult medical examination without abnormal findings (principal)
CPT/HCPCS: 71046

== ENCOUNTER → 2022-08-08 | Outpatient (CLI) | payer MEDICARE, OTHER ==
--- NOTE | 2022-08-11 10:17 | MM ---
Reason for Exam: Screening (asymptomatic). Last mammogram was performed 2 year(s) and 7 month(s) ago. Patient History: Menarche at age 14. First Full-Term at age 20. Right ovary removed at age 45. Postmenopausal. Risk Values: Minerva 5 year model risk: 1.2%. NCI Lifetime model risk: 3.7%. Prior Study Comparison: 09/17/2017 Bilateral Screening Mammogram, [facility]. 01/04/2019 Bilateral Screening Mammogram, [facility]. 01/31/2020 Bilateral Screening Mammogram, [facility]. Tissue Density: There are scattered fibroglandular densities. Findings: Analyzed By CAD. There is no suspicious group of microcalcifications or new suspicious mass in either breast. Stable chronic nodularity within the right breast. Overall Assessment: Benign, BI-RAD 2 Management: Screening Mammogram of both breasts in 1 year. A clinical breast exam by your physician is recommended on an annual basis and results should be correlated with mammographic findings. Electronically signed and approved by: Fracisco Graves D.O.
== END | disposition home or self-care (01) ==
LOC: RADMAMWWP 15:33
PROVIDERS: ATTEND Family Medicine
DX: Z12.31 Encounter for screening mammogram for malignant neoplasm of breast (principal); Z78.0 Asymptomatic menopausal state
CPT/HCPCS: 77063; 77067

== ENCOUNTER → 2023-08-17 | Outpatient (CLI) | payer MEDICARE ==
--- NOTE | 2023-08-18 09:54 | MM ---
Reason for Exam: Screening (asymptomatic). Last screening mammogram was performed 12 month(s) ago. Patient History: Menarche at age 14. First Full-Term at age 20. Right ovary removed at age 45. Postmenopausal. Risk Values: Minerva 5 year model risk: 1.3%. NCI Lifetime model risk: 3.5%. Prior Study Comparison: 01/04/2019 Bilateral Screening Mammogram, [facility]. 01/31/2020 Bilateral Screening Mammogram, [facility]. 08/08/2022 Bilateral MG 3D screening mammo w/cad, [facility]. Tissue Density: There are scattered areas of fibroglandular density. Findings: Analyzed By CAD. There is no suspicious group of microcalcifications or new suspicious mass in either breast. Asymmetric density and chronic nodularity in the outer margin right breast stable. Overall Assessment: Benign, BI-RAD 2 Management: Screening Mammogram of both breasts in 1 year. . Patient should continue monthly self-breast exams. A clinical breast exam by your physician is recommended on an annual basis. This exam should not preclude additional follow-up of suspicious palpable abnormalities. Note on Minerva scores and lifetime risk: 1. A Minerva score greater than 3% is considered moderate risk. If this is the case, consider specialist referral to assess eligibility for a risk reducing agent. 2. If overall lifetime risk for the development of breast cancer is 20% or higher, the patient may qualify for future screening with alternating mammogram and breast MRI. Electronically signed and approved by: Cale Troncoso M.D. Radiologis
== END | disposition home or self-care (01) ==
LOC: RADMAMWWP 14:57
PROVIDERS: ATTEND Family Medicine
DX: Z12.31 Encounter for screening mammogram for malignant neoplasm of breast (principal); Z78.0 Asymptomatic menopausal state
CPT/HCPCS: 77067

== ENCOUNTER → 2023-10-19 | Outpatient (CLI) | payer MEDICARE | END | disposition home or self-care (01) | LOC: LABPRL 08:46 | PROVIDERS: ATTEND Family Medicine | DX: E78.2 Mixed hyperlipidemia (principal) | CPT/HCPCS: 80061; 84450; 84460 ==

== ENCOUNTER → 2024-09-07 | Outpatient (CLI) | payer MEDICARE ==
--- NOTE | 2024-09-07 15:52 | MM ---
Reason for Exam: Screening (asymptomatic). Last mammogram was performed 1 year(s) and 1 month(s) ago. Patient History: Menarche at age 14. First Full-Term at age 20. Right ovary removed at age 45. Postmenopausal. Risk Values: Minerva 5 year model risk: 1.3%. NCI Lifetime model risk: 3.3%. Prior Study Comparison: 01/31/2020 Bilateral Screening Mammogram, [facility]. 08/08/2022 Bilateral MG 3D screening mammo w/cad, [facility]. 08/17/2023 Bilateral MG screening mammo w CAD, [facility]. Tissue Density: There are scattered areas of fibroglandular density. Findings: Analyzed By CAD. Chronic nodularity on the right. There is no suspicious group of microcalcifications or new suspicious mass in either breast. Overall Assessment: Benign, BI-RAD 2 Management: Screening Mammogram of both breasts in 1 year. Patient should continue monthly self-breast exams. A clinical breast exam by your physician is recommended on an annual basis. This exam should not preclude additional follow-up of suspicious palpable abnormalities. Note on Minerva scores and lifetime risk: 1. A Minerva score greater than 3% is considered moderate risk. If this is the case, consider specialist referral to assess eligibility for a risk reducing agent. 2. If overall lifetime risk for the development of breast cancer is 20% or higher, the patient may qualify for future screening with alternating mammogram and breast MRI. [facility], , 09/07/2024 3:49 PM. Electronically signed and approved by: Kelsey Carias M.D. Radiologist
--- NOTE | 2024-09-08 11:54 | BD ---
EXAMINATION TYPE: Axial Bone Density DATE OF EXAM: 09/07/2024 CLINICAL HISTORY: 74 years old Female. ICD-10 CODE: Z78.0 MENOPAUSAL STATE , Additional History: Height: 4 ft 11 in Weight: 165 FRAX RISK QUESTIONS: Alcohol (3 or more units per day): no Family History (Parent hip fracture): no Glucocorticoids (More than 3mos): no (Ex: prednisone, prednisolone, methylprednisolone, dexamethasone, and hydrocortisone). History of Fracture in Adulthood: yes Secondary Osteoporosis: 1. Type 1 Diabetes: no 2. Hyperthyroidism: no 3. Menopause before 45: unsure 4. Malnutrition: no 5. Chronic liver disease: no Rheumatoid Arthritis: no Current Tobacco Use: no RISK FACTORS HISTORY OF: History of Wrist Fracture: right wrist When: 8-9 years ago Surgery to Spine/Hip(right/left)/Wrist (right/left): no MEDICATIONS: Thyroid Medications: yes Which medication: levothyroxine How Lon -12 years Osteoporosis Medications: none EXAM MEASUREMENTS: Bone mineral densitometry was performed using the [employer] System. Bone mineral density as measured about the Lumbar spine is: ----- L1-L4(G/cm2): 0.996 T Score Values are as follows: ----- L1: -1.6 ----- L2: -1.8 ----- L3: -1.2 ----- L4: -1.7 ----- L1-L4: -1.5 Z Score Values are as follows: ----- L1: -0.2 ----- L2: -0.4 ----- L3: 0.1 ----- L4: -0.3 ----- L1-L4: -0.2 baseline Bone mineral density about the R hip (g/cm2): 0.884 Bone mineral density about the L hip (g/cm2): 0.870 T Score values are as follows: -----R Neck: -1.1 -----L Neck: -1.2 -----R Total: -0.5 -----L Total: -0.5 Z Score values are as follows: -----R Neck: 0.5 -----L Neck: 0.4 -----R Total: 0.8 -----L Total: 0.8 baseline FRAX%s: The graph provided illustrates a 14.5 % chance for a major osteoporotic fx and a 1.8 % chance for the hips probability for fx in 10 years time. IMPRESSION: Osteopenia (T Score between -2.5 and -1). There is slightly increased risk of fracture and the patient may be considered for treatment. Re-Screen 2-5 years. NOTE: T-SCORE=SD OF THE YOUNG ADULT MEAN. [facility], , 09/08/2024 11:52 AM
== END | disposition home or self-care (01) ==
LOC: RADMAMWWP 14:45
PROVIDERS: ATTEND Family Medicine
DX: Z12.31 Encounter for screening mammogram for malignant neoplasm of breast (principal); R92.323 Mammographic fibroglandular density, bilateral breasts; N63.10 Unspecified lump in the right breast, unspecified quadrant; M85.89 Other specified disorders of bone density and structure, multiple sites; Z78.0 Asymptomatic menopausal state
CPT/HCPCS: 77063; 77067; 77080